=== PATIENT | female | born 1980 | race Caucasian/White ===

== ENCOUNTER 2021-05-16 08:20 | Inpatient (IN) ==
[2021-05-16] MEDS ORDERED: Ondansetron 4 MG/2 ML VIAL IVP ONE (08:52)
[2021-05-16] MEDS ORDERED: Isovue-370 500 ML BOTTLE IVP ONE (08:52)
[2021-05-16] MEDS ORDERED: Ketorolac 15 MG/ML VIAL IVP ONE (08:52)
[2021-05-16 09:50] LABS: Basophils % 0.2 %; Eosinophils # 0.1 K/mcL (0.0-0.6); Eosinophils % 0.4 %; Hematocrit 41.5 % (35.3-44.9); Hemoglobin 14.3 g/dL (11.5-15.4); Immature Granulocytes % 0.3 % (0-4); Lymphocytes # 0.8 K/mcL (0.6-4.6); Mean Corpuscular HGB Conc 34.5 g/dL (31.6-35.5); Mean Corpuscular Hemoglobin 32.7 pg (28.0-33.3); Mean Platelet Volume 8.8 fL (9.4-12.4); Monocytes # 0.8 K/mcL (0.0-1.3); Monocytes % 5.6 %; Neutrophils # 11.7 K/mcL (1.6-8.9); Platelet Count 371 K/mcL (140-400); Red Blood Count 4.37 M/mcL (3.82-4.97); Red Cell Distribution Width 11.5 % (11.5-14.5); Segmented Neutrophils % 87.5 %; White Blood Count 13.4 K/mcL (4.3-11.1)
[2021-05-16 10:06] LABS: BUN/Creatinine Ratio 10 (6-26); Blood Urea Nitrogen 8 mg/dL (6-20); Calcium 9.5 mg/dL (8.6-10.3); Carbon Dioxide 28 mEq/L (23-29); Chloride 103 mEq/L (98-107); Glucose 86 mg/dL (70-105); Osmolality,Calculated 284 (280-300); Potassium 4.1 mEq/L (3.5-5.1); Sodium 138 mEq/L (136-145); eGFR For African Americans > 60 (> 60); eGFR For Non-African Americans > 60 (> 60)
[2021-05-16 10:14] LABS: Bilirubin,Urine Negative (Negative); Blood,Urine Negative (Negative); Clarity,Urine Clear (Clear); Color,Urine Light-Yellow (Yellow); Glucose,Urine (UA) Normal (Normal); Ketones,Urine Negative (Negative); Leukocyte Esterase,Urine Negative (Negative); Nitrite,Urine Negative (Negative); PH,Urine 7.5 pH Units (5.0-8.0); Protein,Urine Negative (Neg-Trace); Specific Gravity,Urine 1.012 (1.010-1.025); Urobilinogen,Urine Normal (Normal)
[2021-05-16] MEDS ORDERED: Piperacillin/Tazobactam 3.375 GM in 0.9 % Sodium Chloride Mini Bag 100 ML IVPB ONE (12:07)
[2021-05-16] MEDS ORDERED: Morphine Sulfate 2 MG/ML SYRINGE IVP ONE (12:08)
[2021-05-16] MEDS ORDERED: Naloxone 0.4 MG/ML INJ IVP PRN (13:23)
[2021-05-16] MEDS ORDERED: MOM Conc 10 ML UD.LIQ PO PRN (13:23)
[2021-05-16] MEDS ORDERED: Mag Hydrox/Al Hydrox/Simeth 30 ML UDC PO PRN (13:23)
[2021-05-16] MEDS ORDERED: Ondansetron ODT 4 MG TAB.RAPDIS SL PRN (13:23)
[2021-05-16] MEDS ORDERED: Melatonin 3 MG TABLET PO PRN (13:23)
[2021-05-16] MEDS ORDERED: 0.9 % Sodium Chloride w KCl 20 MEQ/1,000 ML MLS IVC SCH (13:30)
[2021-05-16 14:13] LABS: Influenza A PCR Negative (Negative); Influenza B PCR Negative (Negative); Resp. Syncytial Virus PCR Negative (Negative)
[2021-05-16 14:14] LABS: SARS-CoV-2 by PCR (In House) Negative (Negative)
[2021-05-16] MEDS ORDERED: Morphine Sulfate 2 MG/ML SYRINGE IVP PRN (15:55)
[2021-05-16] MEDS: Nicotine 21 MG PATCH.TD24 TD SCH (17:19)
[2021-05-16] MEDS: Fluconazole 400 MG/200 ML 400 MG/200 ML BAG IVPB SCH (17:48)
[2021-05-17] MEDS: Piperacillin/Tazobactam 3.375 GM in 0.9 % Sodium Chloride Mini Bag 100 ML IVPB SCH ×3 (02:12→21:34)
[2021-05-17 02:46] LABS: Hematocrit 38.5 % (35.3-44.9); Hemoglobin 12.8 g/dL (11.5-15.4); Mean Corpuscular HGB Conc 33.2 g/dL (31.6-35.5); Mean Corpuscular Hemoglobin 32.4 pg (28.0-33.3); Mean Corpuscular Volume 97.5 fL (83.0-100.0); Mean Platelet Volume 9.1 fL (9.4-12.4); Platelet Count 367 K/mcL (140-400); Red Blood Count 3.95 M/mcL (3.82-4.97); Red Cell Distribution Width 11.7 % (11.5-14.5)
[2021-05-17 02:58] LABS: BUN/Creatinine Ratio 11 (6-26); Blood Urea Nitrogen 9 mg/dL (6-20); Calcium 9.2 mg/dL (8.6-10.3); Carbon Dioxide 27 mEq/L (23-29); Chloride 105 mEq/L (98-107); Glucose 75 mg/dL (70-105); Osmolality,Calculated 287 (280-300); Potassium 4.5 mEq/L (3.5-5.1); Sodium 140 mEq/L (136-145); eGFR For African Americans > 60 (> 60); eGFR For Non-African Americans > 60 (> 60)
[2021-05-17] MEDS ORDERED: Ketorolac 30 MG/ML VIAL IVP ONE (03:24)
[2021-05-17] MEDS ORDERED: Dextrose Gel 15 GM/37.5 ML TUBE PO PRN ×4 (05:45→18:24)
[2021-05-17] MEDS ORDERED: D5% in Water 1,000 ML IVC PRN ×2 (05:45→18:24)
[2021-05-17] MEDS: *HR* Dextrose 50 % in Water (Syg) 50 ML SYRINGE IVP PRN ×2 (05:58→13:51)
[2021-05-17] MEDS ORDERED: *HR* Enoxaparin 40 MG/0.4 ML SYRINGE SQ SCH (06:00)
[2021-05-17] MEDS: Nicotine 21 MG PATCH.TD24 TD SCH (08:42)
[2021-05-17] MEDS: Fluconazole 400 MG/200 ML 400 MG/200 ML BAG IVPB SCH (08:43)
[2021-05-17] MEDS ORDERED: *HR* HYDROmorphone PF 0.5 MG/0.5 ML SYRINGE IVP PRN (12:07)
[2021-05-17] MEDS ORDERED: *HR* OxyCODONE Immed Rel 5 MG TABLET PO PRN (12:07)
[2021-05-17] MEDS ORDERED: *HR* FentaNYL (PF) 100 MCG/2 ML VIAL IVP PRN (12:07)
[2021-05-17] MEDS ORDERED: Acetaminophen IV 1,000 MG/100 ML BAG IVPB ONE (12:36)
[2021-05-17] MEDS ORDERED: Morphine Sulfate 2 MG/ML SYRINGE IVP ONE (12:38)
[2021-05-17] MEDS ORDERED: Lidocaine HCL 4 ML Topical Solution (Laryng-O-Jet Kit Sterile Pak) TP ONE (13:43)
[2021-05-17] MEDS ORDERED: Ondansetron 4 MG/2 ML VIAL ONE ×2 (13:43→17:59)
[2021-05-17] MEDS ORDERED: *HR* Rocuronium Bromide 50 MG/5 ML VIAL ONE (13:43)
[2021-05-17] MEDS ORDERED: Lidocaine -MPF 2% 2 ML VIAL ONE (13:43)
[2021-05-17] MEDS ORDERED: *HR* Propofol 200 MG/20 ML VIAL IVP ONE (13:50)
[2021-05-17] MEDS ORDERED: *HR* Midazolam HCl 2 MG/2 ML VIAL ONE (13:50)
[2021-05-17] MEDS ORDERED: *HR* FentaNYL (PF) 100 MCG/2 ML VIAL ONE ×2 (13:50→15:32)
[2021-05-17] MEDS ORDERED: Sugammadex Sodium 200 MG/2 ML VIAL IV ONE (13:59)
[2021-05-17] MEDS ORDERED: *HR* HYDROMORPHONE 2 MG/ML VIAL ONE ×2 (15:43→17:12)
[2021-05-17] MEDS ORDERED: Ondansetron 4 MG/2 ML VIAL IVP PRN ×2 (17:57→18:24)
[2021-05-17] MEDS ORDERED: Naloxone 0.4 MG/ML INJ IVP PRN (18:24)
[2021-05-17] MEDS ORDERED: *HR* Dextrose 50 % in Water (Syg) 50 ML SYRINGE IVP PRN (18:24)
[2021-05-17] MEDS ORDERED: Mag Hydrox/Al Hydrox/Simeth 30 ML UDC PO PRN (18:24)
[2021-05-17] MEDS ORDERED: Melatonin 3 MG TABLET PO PRN (18:24)
[2021-05-17] MEDS: 0.9 % Sodium Chloride 1,000 ML IVC SCH (18:47)
[2021-05-17] MEDS: Gabapentin 300 MG CAPSULE PO SCH (21:25)
[2021-05-17] MEDS: Acetaminophen IV 1,000 MG/100 ML BAG IVPB SCH (23:38)
[2021-05-17] MEDS: Ketorolac 15 MG/ML VIAL IVP SCH (23:39)
[2021-05-18 01:26] LABS: Mean Corpuscular HGB Conc 31.3 g/dL (31.6-35.5); Mean Corpuscular Hemoglobin 32.6 pg (28.0-33.3); Platelet Count 214 K/mcL (140-400); Red Blood Count 2.21 M/mcL (3.82-4.97); Red Cell Distribution Width 11.7 % (11.5-14.5); White Blood Count 10.5 K/mcL (4.3-11.1)
[2021-05-18 01:27] LABS: Hemoglobin 7.2 g/dL (11.5-15.4); Mean Corpuscular Volume 104.1 fL (83.0-100.0)
[2021-05-18 01:37] LABS: Alanine Aminotransferase 5 Units/L (7-52); Albumin/Globulin Ratio 1.2 (1.1-2.2); Alkaline Phosphatase 30 Units/L (34-104); Aspartate Amino Transferase 12 Units/L (13-39); BUN/Creatinine Ratio 22 (6-26); Bilirubin,Total 0.3 mg/dL (0.3-1.0); Blood Urea Nitrogen 7 mg/dL (6-20); Calcium 4.5 mg/dL (8.6-10.3); Carbon Dioxide 12 mEq/L (23-29); Chloride 122 mEq/L (98-107); Globulin 1.7 g/dL (2.4-3.5); Glucose 84 mg/dL (70-105); Osmolality,Calculated 301 (280-300); Potassium 2.9 mEq/L (3.5-5.1); Sodium 147 mEq/L (136-145); Total Protein 3.7 g/dL (6.4-8.9); eGFR For African Americans > 60 (> 60); eGFR For Non-African Americans > 60 (> 60)
[2021-05-18 02:33] LABS: Alanine Aminotransferase 9 Units/L (7-52); Albumin 3.3 g/dL (3.5-5.7); Albumin/Globulin Ratio 1.3 (1.1-2.2); Alkaline Phosphatase 51 Units/L (34-104); Aspartate Amino Transferase 18 Units/L (13-39); BUN/Creatinine Ratio 16 (6-26); Bilirubin,Total 0.5 mg/dL (0.3-1.0); Blood Urea Nitrogen 10 mg/dL (6-20); Carbon Dioxide 19 mEq/L (23-29); Chloride 107 mEq/L (98-107); Globulin 2.6 g/dL (2.4-3.5); Glucose 133 mg/dL (70-105); Osmolality,Calculated 283 (280-300); Potassium 4.3 mEq/L (3.5-5.1); Sodium 136 mEq/L (136-145); Total Protein 5.9 g/dL (6.4-8.9); eGFR For African Americans > 60 (> 60); eGFR For Non-African Americans > 60 (> 60)
[2021-05-18] MEDS: 0.9 % Sodium Chloride 1,000 ML IVC SCH ×2 (05:14→23:38)
[2021-05-18] MEDS: Ketorolac 15 MG/ML VIAL IVP SCH ×4 (05:14→23:38)
[2021-05-18] MEDS: *HR* Enoxaparin 40 MG/0.4 ML SYRINGE SQ SCH (05:15)
[2021-05-18] MEDS: Piperacillin/Tazobactam 3.375 GM in 0.9 % Sodium Chloride Mini Bag 100 ML IVPB SCH ×3 (05:15→21:26)
[2021-05-18] MEDS: Morphine PCA 30 MG/ 30 ML 30 ML PCA.VIAL IVC PRN (05:33)
[2021-05-18] MEDS: Acetaminophen IV 1,000 MG/100 ML BAG IVPB SCH ×4 (06:41→23:38)
[2021-05-18 08:31] LABS: Hematocrit 36.8 % (35.3-44.9)
[2021-05-18 08:58] LABS: Hemoglobin 12.6 g/dL (11.5-15.4)
[2021-05-18] MEDS: Fluconazole 400 MG/200 ML 400 MG/200 ML BAG IVPB SCH (09:07)
[2021-05-18] MEDS: Nicotine 21 MG PATCH.TD24 TD SCH (09:07)
[2021-05-18] MEDS: Gabapentin 300 MG CAPSULE PO SCH ×3 (09:07→21:26)
[2021-05-18] MEDS: Pantoprazole 40 MG VIAL IVP SCH (09:08)
[2021-05-19] MEDS ORDERED: Piperacillin/Tazobactam 3.375 GM VIAL ONE (04:49)
[2021-05-19] MEDS: Piperacillin/Tazobactam 3.375 GM in 0.9 % Sodium Chloride Mini Bag 100 ML IVPB SCH ×2 (05:00→15:25)
[2021-05-19] MEDS: *HR* Enoxaparin 40 MG/0.4 ML SYRINGE SQ SCH (05:00)
[2021-05-19] MEDS: Ketorolac 15 MG/ML VIAL IVP SCH ×3 (05:00→17:20)
[2021-05-19 05:13] LABS: Mean Corpuscular HGB Conc 34.3 g/dL (31.6-35.5); Mean Corpuscular Hemoglobin 32.6 pg (28.0-33.3); Mean Platelet Volume 9.8 fL (9.4-12.4); Platelet Count 293 K/mcL (140-400); Red Blood Count 3.16 M/mcL (3.82-4.97); Red Cell Distribution Width 11.7 % (11.5-14.5); White Blood Count 13.9 K/mcL (4.3-11.1)
[2021-05-19 05:16] LABS: Hemoglobin 10.3 g/dL (11.5-15.4); Mean Corpuscular Volume 94.9 fL (83.0-100.0)
[2021-05-19 05:24] LABS: Alanine Aminotransferase 14 Units/L (7-52); Albumin 3.1 g/dL (3.5-5.7); Albumin/Globulin Ratio 1.1 (1.1-2.2); Alkaline Phosphatase 51 Units/L (34-104); Aspartate Amino Transferase 26 Units/L (13-39); BUN/Creatinine Ratio 15 (6-26); Bilirubin,Total 0.3 mg/dL (0.3-1.0); Blood Urea Nitrogen 9 mg/dL (6-20); Calcium 8.6 mg/dL (8.6-10.3); Carbon Dioxide 23 mEq/L (23-29); Chloride 108 mEq/L (98-107); Globulin 2.8 g/dL (2.4-3.5); Glucose 117 mg/dL (70-105); Osmolality,Calculated 290 (280-300); Potassium 4.2 mEq/L (3.5-5.1); Sodium 140 mEq/L (136-145); Total Protein 5.9 g/dL (6.4-8.9); eGFR For African Americans > 60 (> 60); eGFR For Non-African Americans > 60 (> 60)
[2021-05-19] MEDS: Fluconazole 400 MG/200 ML 400 MG/200 ML BAG IVPB SCH (08:42)
[2021-05-19] MEDS: Nicotine 21 MG PATCH.TD24 TD SCH (08:43)
[2021-05-19] MEDS: Pantoprazole 40 MG VIAL IVP SCH (08:44)
[2021-05-19] MEDS: Gabapentin 300 MG CAPSULE PO SCH ×2 (08:44→15:25)
[2021-05-19] MEDS: Acetaminophen IV 1,000 MG/100 ML BAG IVPB SCH ×3 (13:01→17:20)
[2021-05-19] MEDS: Morphine PCA 30 MG/ 30 ML 30 ML PCA.VIAL IVC PRN (19:31)
[2021-05-20] MEDS: Gabapentin 300 MG CAPSULE PO SCH ×4 (01:10→21:27)
[2021-05-20] MEDS: Piperacillin/Tazobactam 3.375 GM in 0.9 % Sodium Chloride Mini Bag 100 ML IVPB SCH ×2 (01:10→05:30)
[2021-05-20] MEDS: Acetaminophen IV 1,000 MG/100 ML BAG IVPB SCH ×5 (01:10→23:51)
[2021-05-20] MEDS: Ketorolac 15 MG/ML VIAL IVP SCH ×5 (01:10→23:51)
[2021-05-20] MEDS: 0.9 % Sodium Chloride 1,000 ML IVC SCH ×2 (01:11→16:46)
[2021-05-20 03:24] LABS: Hematocrit 29.7 % (35.3-44.9); Hemoglobin 9.8 g/dL (11.5-15.4); Mean Corpuscular Hemoglobin 31.8 pg (28.0-33.3); Mean Corpuscular Volume 96.4 fL (83.0-100.0); Platelet Count 329 K/mcL (140-400); Red Blood Count 3.08 M/mcL (3.82-4.97); Red Cell Distribution Width 11.9 % (11.5-14.5); White Blood Count 7.8 K/mcL (4.3-11.1)
[2021-05-20 03:43] LABS: Alanine Aminotransferase 15 Units/L (7-52); Albumin/Globulin Ratio 1.2 (1.1-2.2); Alkaline Phosphatase 51 Units/L (34-104); Aspartate Amino Transferase 24 Units/L (13-39); BUN/Creatinine Ratio 10 (6-26); Bilirubin,Total 0.3 mg/dL (0.3-1.0); Blood Urea Nitrogen 6 mg/dL (6-20); Calcium 8.4 mg/dL (8.6-10.3); Carbon Dioxide 27 mEq/L (23-29); Chloride 106 mEq/L (98-107); Globulin 2.6 g/dL (2.4-3.5); Glucose 90 mg/dL (70-105); Osmolality,Calculated 287 (280-300); Potassium 3.3 mEq/L (3.5-5.1); Sodium 140 mEq/L (136-145); Total Protein 5.6 g/dL (6.4-8.9); eGFR For African Americans > 60 (> 60); eGFR For Non-African Americans > 60 (> 60)
[2021-05-20] MEDS: *HR* Enoxaparin 40 MG/0.4 ML SYRINGE SQ SCH (05:30)
[2021-05-20] MEDS ORDERED: Potassium Chloride 40 MEQ, Lidocaine 1% 2 ML in 0.9 % Sodium Chloride 500 ML IVPB ONE (07:44)
[2021-05-20] MEDS ORDERED: *HR* OxyCODONE/APAP 5/325 TABLET PO PRN (08:15)
[2021-05-20] MEDS: Fluconazole 400 MG/200 ML 400 MG/200 ML BAG IVPB SCH (09:20)
[2021-05-20] MEDS: Pantoprazole 40 MG VIAL IVP SCH (09:21)
[2021-05-20] MEDS: Nicotine 21 MG PATCH.TD24 TD SCH (09:22)
[2021-05-21] MEDS: 0.9 % Sodium Chloride 1,000 ML IVC SCH (01:40)
[2021-05-21] MEDS: Ketorolac 15 MG/ML VIAL IVP SCH (05:26)
[2021-05-21] MEDS: *HR* Enoxaparin 40 MG/0.4 ML SYRINGE SQ SCH (05:27)
[2021-05-21] MEDS: Acetaminophen IV 1,000 MG/100 ML BAG IVPB SCH (05:28)
[2021-05-21 06:29] LABS: Hematocrit 32.3 % (35.3-44.9); Hemoglobin 10.4 g/dL (11.5-15.4); Mean Corpuscular HGB Conc 32.2 g/dL (31.6-35.5); Mean Corpuscular Hemoglobin 31.6 pg (28.0-33.3); Mean Corpuscular Volume 98.2 fL (83.0-100.0); Mean Platelet Volume 8.8 fL (9.4-12.4); Platelet Count 348 K/mcL (140-400); Red Blood Count 3.29 M/mcL (3.82-4.97); Red Cell Distribution Width 11.9 % (11.5-14.5); White Blood Count 5.8 K/mcL (4.3-11.1)
[2021-05-21 06:51] LABS: Alanine Aminotransferase 22 Units/L (7-52); Albumin 3.2 g/dL (3.5-5.7); Albumin/Globulin Ratio 1.4 (1.1-2.2); Alkaline Phosphatase 56 Units/L (34-104); Aspartate Amino Transferase 31 Units/L (13-39); BUN/Creatinine Ratio 8 (6-26); Bilirubin,Total 0.3 mg/dL (0.3-1.0); Blood Urea Nitrogen 4 mg/dL (6-20); Calcium 8.8 mg/dL (8.6-10.3); Carbon Dioxide 27 mEq/L (23-29); Chloride 107 mEq/L (98-107); Globulin 2.3 g/dL (2.4-3.5); Glucose 76 mg/dL (70-105); Osmolality,Calculated 288 (280-300); Potassium 3.6 mEq/L (3.5-5.1); Sodium 141 mEq/L (136-145); Total Protein 5.5 g/dL (6.4-8.9); eGFR For African Americans > 60 (> 60); eGFR For Non-African Americans > 60 (> 60)
[2021-05-21 07:08] VITALS: TEMP 98.2
[2021-05-21] MEDS: Pantoprazole 40 MG VIAL IVP SCH (08:23)
[2021-05-21] MEDS: Gabapentin 300 MG CAPSULE PO SCH (08:39)
[2021-05-21] MEDS: Nicotine 21 MG PATCH.TD24 TD SCH (08:39)
[2021-05-21] MEDS ORDERED: Piperacillin/Tazobactam 3.375 GM in 0.9 % Sodium Chloride Mini Bag 100 ML IVPB SCH (10:24)
[2021-05-21 11:00] VITALS: BP 149/89; PULSE 95; O2SAT 97
== END 2021-05-21 12:38 | disposition home or self-care (01) | DRG 231 ==
LOC: EMEROOARM 08:20 → 3ANU 08:20 → SUATTDRO 05-17 19:51
PROVIDERS: ADMIT Internal Medicine; ATTEND Registered Nurse

== ENCOUNTER 2021-08-15 11:31 | Inpatient (IN) ==
[2021-08-15] MEDS ORDERED: Famotidine 20 MG/2 ML VIAL IVP ONE (11:53)
[2021-08-15] MEDS ORDERED: Acetaminophen IV 1,000 MG/100 ML BAG IVPB ONE (11:55)
[2021-08-15] MEDS ORDERED: *HR* HYDROmorphone PF 0.5 MG/0.5 ML SYRINGE IVP PRN (12:08)
[2021-08-15] MEDS ORDERED: Ondansetron 4 MG/2 ML VIAL IVP PRN ×2 (12:08→18:14)
[2021-08-15] MEDS ORDERED: Lidocaine -MPF 2% 5 ML VIAL ONE ×2 (12:12→13:24)
[2021-08-15] MEDS ORDERED: Ondansetron 4 MG/2 ML VIAL ONE (12:12)
[2021-08-15] MEDS ORDERED: *HR* Rocuronium Bromide 50 MG/5 ML VIAL ONE (12:12)
[2021-08-15] MEDS ORDERED: *HR* Propofol 200 MG/20 ML VIAL IVP ONE ×2 (12:13→13:24)
[2021-08-15] MEDS ORDERED: *HR* FentaNYL (PF) 100 MCG/2 ML VIAL ONE ×3 (12:13→14:18)
[2021-08-15] MEDS ORDERED: *HR* Midazolam HCl 2 MG/2 ML VIAL ONE (12:13)
[2021-08-15] MEDS ORDERED: CeFAZolin Syr 2,000MG/20 ML 2,000 MG/20 ML SYRINGE IVPB ONE (12:47)
[2021-08-15] MEDS ORDERED: Albuterol 2.5 MG/3 ML NEBULIZER IH PRN (12:47)
[2021-08-15] MEDS ORDERED: MetroNIDAZOLE 500 MG/100 ML 500 MG/100 ML BAG IVPB ONE (12:49)
[2021-08-15] MEDS ORDERED: Ringers Solution, Lactated 1,000 ML IVC SCH (13:00)
[2021-08-15] MEDS ORDERED: Lacri-Lube 3.5 GM TUBE ONE (13:50)
[2021-08-15] MEDS ORDERED: *HR* Labetalol 20 MG/4 ML SYRINGE IVP ONE (14:27)
[2021-08-15] MEDS ORDERED: *HR* Magnesium Sulfate 1 GM/2 ML VIAL ONE (14:58)
[2021-08-15] MEDS ORDERED: Sugammadex Sodium 200 MG/2 ML VIAL IV ONE (15:54)
[2021-08-15] MEDS ORDERED: *HR* HYDROMORPHONE 2 MG/ML VIAL ONE (16:09)
[2021-08-15] MEDS ORDERED: *HR* HYDROmorphone 20 MG/20 ML PCA IVC PRN (18:14)
[2021-08-15] MEDS ORDERED: Naloxone 0.4 MG/ML INJ IVP PRN (18:14)
[2021-08-15 18:59] LABS: Basophils % 0.2 %; Immature Granulocytes % 0.4 % (0-4)
[2021-08-15 19:00] LABS: Hematocrit 39.3 % (35.3-44.9); Mean Corpuscular Volume 96.3 fL (83.0-100.0); Red Blood Count 4.08 M/mcL (3.82-4.97)
[2021-08-15 19:15] LABS: BUN/Creatinine Ratio 14 (6-26); Blood Urea Nitrogen 10 mg/dL (6-20); Calcium 8.8 mg/dL (8.6-10.3); Carbon Dioxide 23 mEq/L (23-29); Chloride 104 mEq/L (98-107); Glucose 139 mg/dL (70-105); Magnesium 2.1 mg/dL (1.6-2.6); Osmolality,Calculated 285 (280-300); Phosphorous 3.9 mg/dL (2.7-4.5); Potassium 3.4 mEq/L (3.5-5.1); Sodium 137 mEq/L (136-145); eGFR For African Americans > 60 (> 60); eGFR For Non-African Americans > 60 (> 60)
[2021-08-15 19:17] LABS: Hemoglobin 13.3 g/dL (11.5-15.4); Immature Platelets 2.9 % (1.1-6.1); Lymphocytes # 0.4 K/mcL (0.6-4.6); Lymphocytes % 2.3 %; Mean Corpuscular HGB Conc 33.8 g/dL (31.6-35.5); Mean Corpuscular Hemoglobin 32.6 pg (28.0-33.3); Mean Platelet Volume 9.3 fL (9.4-12.4); Monocytes # 0.6 K/mcL (0.0-1.3); Monocytes % 3.3 %; Platelet Count 326 K/mcL (140-400); Red Cell Distribution Width 11.9 % (11.5-14.5); Segmented Neutrophils % 93.8 %; White Blood Count 17.3 K/mcL (4.3-11.1)
[2021-08-15 20:11] LABS: Neutrophils # 16.2 K/mcL (1.6-8.9)
[2021-08-15 20:14] LABS: Platelet Estimate Normal (Normal)
[2021-08-15] MEDS: 0.9 % Sodium Chloride 1,000 ML IVC SCH (20:57)
[2021-08-15] MEDS: Nicotine 7 MG PATCH.TD24 TD SCH (21:19)
[2021-08-16] MEDS: Ipratropium/Albuterol Neb 3 ML IH SCH ×2 (04:40→21:32)
[2021-08-16] MEDS: 0.9 % Sodium Chloride 1,000 ML IVC SCH ×2 (04:41→12:51)
[2021-08-16 07:42] LABS: Basophils % 0.1 %; Hematocrit 33.6 % (35.3-44.9); Immature Granulocytes % 0.4 % (0-4); Lymphocytes # 0.2 K/mcL (0.6-4.6); Lymphocytes % 1.9 %; Mean Corpuscular HGB Conc 33.9 g/dL (31.6-35.5); Mean Corpuscular Hemoglobin 31.8 pg (28.0-33.3); Mean Corpuscular Volume 93.9 fL (83.0-100.0); Mean Platelet Volume 9.3 fL (9.4-12.4); Monocytes # 0.8 K/mcL (0.0-1.3); Monocytes % 6.4 %; Neutrophils # 11.5 K/mcL (1.6-8.9); Platelet Count 358 K/mcL (140-400); Red Blood Count 3.58 M/mcL (3.82-4.97); Red Cell Distribution Width 12.1 % (11.5-14.5); Segmented Neutrophils % 91.2 %; White Blood Count 12.6 K/mcL (4.3-11.1)
[2021-08-16 07:45] LABS: Hemoglobin 11.4 g/dL (11.5-15.4)
[2021-08-16 08:05] LABS: BUN/Creatinine Ratio 14 (6-26); Blood Urea Nitrogen 9 mg/dL (6-20); Calcium 8.6 mg/dL (8.6-10.3); Carbon Dioxide 24 mEq/L (23-29); Chloride 104 mEq/L (98-107); Glucose 133 mg/dL (70-105); Magnesium 1.8 mg/dL (1.6-2.6); Osmolality,Calculated 285 (280-300); Phosphorous 3.2 mg/dL (2.7-4.5); Potassium 3.9 mEq/L (3.5-5.1); Sodium 137 mEq/L (136-145); eGFR For African Americans > 60 (> 60); eGFR For Non-African Americans > 60 (> 60)
[2021-08-16] MEDS: D5% in 0.45% NACL w KCl 20 MEQ/1,000 ML MLS IVC SCH (19:40)
[2021-08-16] MEDS: Nicotine 7 MG PATCH.TD24 TD SCH (19:58)
[2021-08-17] MEDS: D5% in 0.45% NACL w KCl 20 MEQ/1,000 ML MLS IVC SCH ×4 (03:53→20:37)
[2021-08-17] MEDS: Ipratropium/Albuterol Neb 3 ML IH SCH ×4 (04:40→21:18)
[2021-08-17] MEDS: *HR* Enoxaparin 40 MG/0.4 ML SYRINGE SQ SCH (06:13)
[2021-08-17] MEDS: Nicotine 7 MG PATCH.TD24 TD SCH ×2 (08:40→20:36)
[2021-08-17] MEDS ORDERED: Ibuprofen 600 MG TABLET PO SCH (13:00)
[2021-08-17] MEDS: Ibuprofen 600 MG TABLET PO SCH (14:51)
[2021-08-17] MEDS: Acetaminophen IV 1,000 MG/100 ML BAG IVPB SCH ×2 (18:11→23:20)
[2021-08-18] MEDS: Ibuprofen 600 MG TABLET PO SCH ×2 (01:55→14:50)
[2021-08-18] MEDS: Ipratropium/Albuterol Neb 3 ML IH SCH ×4 (04:26→19:54)
[2021-08-18] MEDS: D5% in 0.45% NACL w KCl 20 MEQ/1,000 ML MLS IVC SCH (06:10)
[2021-08-18] MEDS: Acetaminophen IV 1,000 MG/100 ML BAG IVPB SCH ×4 (06:10→23:43)
[2021-08-18] MEDS: *HR* Enoxaparin 40 MG/0.4 ML SYRINGE SQ SCH (06:11)
[2021-08-18] MEDS ORDERED: D5% in 0.45% NACL w KCl 20 MEQ/1,000 ML MLS IVC SCH (07:45)
[2021-08-18] MEDS: Nicotine 7 MG PATCH.TD24 TD SCH (20:22)
[2021-08-19] MEDS: Ibuprofen 600 MG TABLET PO SCH (02:20)
[2021-08-19] MEDS: Ipratropium/Albuterol Neb 3 ML IH SCH ×3 (03:49→15:43)
[2021-08-19] MEDS: Acetaminophen IV 1,000 MG/100 ML BAG IVPB SCH (05:39)
[2021-08-19] MEDS: *HR* Enoxaparin 40 MG/0.4 ML SYRINGE SQ SCH (06:16)
[2021-08-19] MEDS ORDERED: *HR* OxyCODONE Immed Rel 5 MG TABLET PO PRN (08:05)
[2021-08-19] MEDS ORDERED: Ibuprofen 600 MG TABLET PO SCH (08:15)
[2021-08-19] MEDS ORDERED: polyethylene glycoL 3350 17 GM POWD.PACK PO SCH (09:00)
[2021-08-19] MEDS ORDERED: levoFLOXacin 750 MG TABLET PO ONE (09:39)
[2021-08-19 14:36] VITALS: BP 136/96; PULSE 112; TEMP 98.9; O2SAT 97
== END 2021-08-19 16:33 | disposition home health service (06) | DRG 230 ==
LOC: SAMDAY 11:31 → 3ANU 18:10
PROVIDERS: ADMIT Surgery; ATTEND Surgery